=== PATIENT | male | born 1990 | race Caucasian/White ===

== ENCOUNTER 2021-04-01 03:15 | Emergency (ER) | payer MEDICAID ==
[2021-04-01] MEDS ORDERED: MORPHINE SULFATE 4 MG/ML CPJ (NOT FOR IM USE) IV STA (04:48)
[2021-04-01] MEDS ORDERED: IBUP-2029 MT (06:09)
[2021-04-01 06:50] VITALS: BP 133/96
== END 2021-04-01 07:02 | disposition home or self-care (01) ==
LOC: ER 03:15
DX: S52.592A Other fractures of lower end of left radius, initial encounter for closed fracture (principal); S53.095A Other dislocation of left radial head, initial encounter; W01.0XXA Fall on same level from slipping, tripping and stumbling without subsequent striking against object, initial encounter; Y93.41 Activity, dancing; Y92.9 Unspecified place or not applicable
CPT/HCPCS: 24600; 73020; 73060; 73090; 73100; 96374; 99152; 99285; J2270